=== PATIENT | male | born 1970 | race Two or more races ===

== ENCOUNTER 2022-11-06 13:52 | Inpatient (IN) | payer MEDICAID ==
[~2022-11-06] VITALS: Ht 180.3 cm; Wt 110.2 kg
[2022-11-06] MEDS ORDERED: QUET200T PO ×2 (15:09)
[2022-11-06] MEDS ORDERED: OLAN10TA26 PO (15:09)
[2022-11-06] MEDS ORDERED: DIAZ-328 PO (15:09)
[2022-11-06 15:19] LABS: COVID AG,FIA SOURCE NASAL SWAB
[2022-11-06] MEDS ORDERED: HALOPERIDOL LACTATE 5 MG/ML VIAL IM ONE (15:30)
[2022-11-06] MEDS ORDERED: DiphenhydrAMINE HCL 50 MG/ML VIAL IM ONE (15:30)
[2022-11-06] MEDS ORDERED: LORazepam 2 MG/ML VIAL IM ONE (15:30)
[2022-11-06 16:13] LABS: SARS-COV2 (COVID) ANTIGEN,FIA Negative (Negative)
[2022-11-06] MEDS ORDERED: ZOLPIDEM TARTRATE 10 MG TABLET PO PRN (16:30)
[2022-11-06] MEDS ORDERED: LORazepam 2 MG TABLET PO PRN (16:30)
[2022-11-06] MEDS ORDERED: HALOPERIDOL 5 MG TABLET PO PRN (16:30)
[2022-11-06 19:14] LABS: BASOPHILS % (AUTO) 0.4 % (0.0-2.0); EOSINOPHILS % (AUTO) 1.7 % (1.0-6.0); HEMATOCRIT 36.4 % (41-53); HEMOGLOBIN 12.1 g/dL (13.5-17.5); LYMPHOCYTES # (AUTO) 1.7 K/uL (1.0-4.8); LYMPHOCYTES % (AUTO) 20.6 % (22.0-44.0); MEAN CORPUSCULAR HEMOGLOBIN 28.4 pg (26.0-34.0); MEAN CORPUSCULAR HGB CONC 33.1 G/dL (31.0-37.0); MEAN CORPUSCULAR VOLUME 86 fL (80-100); MONOCYTES # (AUTO) 0.8 K/uL (0.1-1.0); MONOCYTES % (AUTO) 9.6 % (2.0-9.0); NEUTROPHILS # (AUTO) 5.7 K/uL (1.8-7.7); NEUTROPHILS % (AUTO) 67.7 % (40.0-70.0); PLATELET COUNT (AUTO) 219 K/uL (150-450); RED BLOOD CELL COUNT(AUTO) 4.24 MIL/uL (4.50-5.90); RED CELL DISTRIBUTION WIDTH 14.9 % (11.5-14.5); WHITE BLOOD COUNT (AUTO) 8.5 K/uL (4.5-11.0)
[2022-11-06 19:21] LABS: ANION GAP 10 mmol/L (8-16); CALCIUM, TOTAL 8.4 mg/dL (8.8-10.5); CARBON DIOXIDE 28 mmol/L (22-29); CHLORIDE 103 mmol/L (98-107); CREATININE 0.72 mg/dL (0.60-1.30); GLOMERULAR FILTR. RATE CALC > 60 mL/min (>60); GLUCOSE,RANDOM 104 mg/dL (70-110); POTASSIUM 3.8 mmol/L (3.5-5.1); SODIUM SERUM 141 mmol/L (136-145); UREA NITROGEN, BLOOD 28 mg/dL (7-18)
[2022-11-06 19:27] LABS: ALANINE AMINOTRANSFERASE 14 U/L (12-78); ALBUMIN 3.1 g/dL (3.4-5.0); ALKALINE PHOSPHATASE 79 U/L (46-116); ASPARTATE AMINOTRANSFERASE 23 U/L (15-37); BILIRUBIN,TOTAL 0.5 mg/dL (0.1-1.0); TOTAL PROTEIN, SERUM 6.2 g/dL (6.4-8.2)
[2022-11-06 19:28] LABS: ALCOHOL, BLOOD (SERUM) < 3 mg/dL (0-10)
[2022-11-06 22:01] VITALS: BP 137/83; PULSE 71; RESP 18; TEMP 98.6
[2022-11-07 08:29] VITALS: BP 119/65; PULSE 76; RESP 18; TEMP 98.4
[2022-11-07] MEDS: QUEtiapine FUMARATE 200 MG TABLET PO SCH ×2 (13:00→20:36)
[2022-11-07] MEDS ORDERED: MAGNESIUM HYDROXIDE SUSPENSION 30 ML UDCUP PO PRN (14:00)
[2022-11-07] MEDS ORDERED: NICOTINE 14 MG/24 HOUR PATCH TD PRN (14:00)
[2022-11-07] MEDS ORDERED: CloNIDine HCL 0.1 MG TABLET PO PRN (14:00)
[2022-11-07] MEDS ORDERED: ONDANSETRON HCL 4 MG TABLET PO PRN (14:00)
[2022-11-07] MEDS ORDERED: DOCUSATE SODIUM 100 MG CAPSULE PO PRN (14:00)
[2022-11-07] MEDS ORDERED: ALBUTEROL SULFATE HFA 90 MCG/PUFF 8 GM INHALER IH PRN (14:00)
[2022-11-07] MEDS ORDERED: LOPERAMIDE HCL 2 MG CAPSULE PO PRN (14:00)
[2022-11-07] MEDS ORDERED: PETROLATUM,WHITE 28 GM JELLY TP PRN (14:00)
[2022-11-07] MEDS ORDERED: GuaiFENesin/D-METHORPHAN [SUGAR-FREE] 200-20MG/10 ML SYRUP UDCUP PO PRN (14:00)
[2022-11-07] MEDS ORDERED: MAG HYDROX/ALUMINUM HYD/SIMETH ES 30 ML SUSPENSION UDCUP PO PRN (14:00)
[2022-11-07] MEDS ORDERED: ACETAMINOPHEN 325 MG TABLET PO PRN (14:00)
[2022-11-07 20:19] VITALS: BP 122/71; PULSE 65; RESP 19; TEMP 98.6; O2SAT 100
[2022-11-08] MEDS: QUEtiapine FUMARATE 200 MG TABLET PO SCH ×2 (09:00→20:56)
[2022-11-08 14:53] VITALS: BP 131/82; PULSE 73; RESP 18; TEMP 98.2
[2022-11-08 19:54] VITALS: BP 108/64; PULSE 73; RESP 19; TEMP 97.8; O2SAT 97
[2022-11-08 20:40] VITALS: RESP 16
[2022-11-09 08:14] VITALS: BP 118/67; PULSE 86; RESP 17; TEMP 97.6; O2SAT 98
[2022-11-09] MEDS: QUEtiapine FUMARATE 200 MG TABLET PO SCH ×3 (08:21→20:25)
[2022-11-09 20:12] VITALS: BP 132/82; PULSE 87; RESP 20; TEMP 97.6; O2SAT 100
[2022-11-10 08:30] LABS: HEMOGLOBIN A1C 5.4 % (3.8-5.6)
[2022-11-10 08:31] VITALS: BP 114/83; PULSE 84; RESP 18; TEMP 98.1; O2SAT 99
[2022-11-10 08:44] LABS: CHOL/HDL RATIO 3.5 (4.2-7.3); THYROID STIMULATING HORMONE 2.42 uIU/mL (0.36-3.74)
[2022-11-10] MEDS: QUEtiapine FUMARATE 200 MG TABLET PO SCH ×2 (09:00→21:00)
[2022-11-10 22:06] VITALS: BP 140/82; PULSE 81; RESP 18; TEMP 97.8
[2022-11-11 08:12] VITALS: BP 119/64; PULSE 83; RESP 17; TEMP 97.2; O2SAT 99
[2022-11-11] MEDS: QUEtiapine FUMARATE 200 MG TABLET PO SCH ×2 (08:35→21:06)
[2022-11-11] MEDS ORDERED: HALOPERIDOL LACTATE 5 MG/ML VIAL IM PRN (15:15)
[2022-11-12 02:51] VITALS: RESP 18
[2022-11-12 08:20] VITALS: BP 100/73; PULSE 83; RESP 18; TEMP 98.7; O2SAT 100
[2022-11-12] MEDS: QUEtiapine FUMARATE 200 MG TABLET PO SCH ×3 (08:35→20:26)
[2022-11-12 20:04] VITALS: BP 120/64; PULSE 86; RESP 18; TEMP 97.9; O2SAT 98
[2022-11-13 08:25] VITALS: BP 119/66; PULSE 82; RESP 20; TEMP 98; O2SAT 97
[2022-11-13 21:09] VITALS: BP 123/66; PULSE 68; RESP 18; TEMP 98.2; O2SAT 97
[2022-11-13] MEDS: QUEtiapine FUMARATE 300 MG TABLET PO SCH (21:27)
[2022-11-14 08:11] VITALS: BP 138/73; PULSE 76; RESP 18; TEMP 97.8; O2SAT 99
[2022-11-14 20:06] VITALS: BP 124/67; PULSE 63; RESP 18; TEMP 98; O2SAT 98
[2022-11-14] MEDS: QUEtiapine FUMARATE 300 MG TABLET PO SCH (20:46)
[2022-11-15 08:08] VITALS: BP 124/65; PULSE 59; RESP 18; TEMP 98.3; O2SAT 99
[2022-11-15 20:14] VITALS: BP 136/65; PULSE 75; RESP 18; TEMP 97.6; O2SAT 98
[2022-11-15] MEDS: QUEtiapine FUMARATE 300 MG TABLET PO SCH (20:19)
[2022-11-16 08:26] VITALS: BP 128/71; PULSE 76; RESP 18; TEMP 98.1; O2SAT 98
[2022-11-16 20:16] VITALS: BP 103/63; PULSE 64; RESP 19; TEMP 98.4; O2SAT 98
[2022-11-16] MEDS: QUEtiapine FUMARATE 300 MG TABLET PO SCH (20:44)
[2022-11-17 08:14] VITALS: BP 140/87; PULSE 76; RESP 17; TEMP 98; O2SAT 98
[2022-11-17 20:16] VITALS: BP 114/69; PULSE 68; RESP 20; TEMP 98.2; O2SAT 98
[2022-11-17] MEDS: QUEtiapine FUMARATE 300 MG TABLET PO SCH (20:33)
[2022-11-18] VITALS (7 sets, daily range): BP systolic 116–122; BP diastolic 66–84; PULSE 64–83; RESP 17–19; TEMP 97.3–98.5; O2SAT 97–98
[2022-11-18] MEDS: QUEtiapine FUMARATE 300 MG TABLET PO SCH (20:30)
[2022-11-19] VITALS (7 sets, daily range): BP systolic 124–128; BP diastolic 74–75; PULSE 72–86; RESP 17–18; TEMP 97.6–98.3; O2SAT 98–99
[2022-11-19] MEDS: QUEtiapine FUMARATE 300 MG TABLET PO SCH (20:27)
[2022-11-20] VITALS (8 sets, daily range): BP systolic 102–119; BP diastolic 67–73; PULSE 68–70; RESP 17–18; TEMP 97.6–98.4; O2SAT 97
[2022-11-20] MEDS: QUEtiapine FUMARATE 300 MG TABLET PO SCH (20:47)
[2022-11-21] VITALS (8 sets, daily range): BP systolic 122–131; BP diastolic 63–76; PULSE 70–72; RESP 16–18; TEMP 97.9–98.6; O2SAT 97–99
[2022-11-21] MEDS: QUEtiapine FUMARATE 300 MG TABLET PO SCH (20:23)
[2022-11-22 03:39] VITALS: TEMP 97.6
[2022-11-22 06:04] VITALS: TEMP 97.7
[2022-11-22 10:36] VITALS: BP 112/69; PULSE 81; RESP 18; TEMP 98.1; O2SAT 98
[2022-11-22 17:22] VITALS: TEMP 98.1
[2022-11-22 18:28] VITALS: TEMP 97.3
[2022-11-22 21:04] VITALS: BP 110/65; PULSE 76; RESP 18; TEMP 98; O2SAT 97
[2022-11-22] MEDS: QUEtiapine FUMARATE 300 MG TABLET PO SCH (21:13)
[2022-11-23] VITALS (8 sets, daily range): BP systolic 129–134; BP diastolic 60–74; PULSE 70–91; RESP 18–20; TEMP 97.7–98.4; O2SAT 96–98
[2022-11-23] MEDS: QUEtiapine FUMARATE 300 MG TABLET PO SCH (21:24)
[2022-11-24 02:04] VITALS: TEMP 97.8
[2022-11-24 06:05] VITALS: TEMP 97.9
[2022-11-24 08:48] VITALS: BP 122/71; PULSE 97; RESP 18; TEMP 98.2; O2SAT 97
[2022-11-24 13:39] VITALS: TEMP 98.6
[2022-11-24 20:12] VITALS: BP 130/68; PULSE 100; RESP 20; TEMP 98; O2SAT 98
[2022-11-24] MEDS: QUEtiapine FUMARATE 300 MG TABLET PO SCH (20:27)
[2022-11-25 08:36] VITALS: BP 124/75; PULSE 79; RESP 18; TEMP 97.2; O2SAT 96
[2022-11-25 20:09] VITALS: BP 122/72; PULSE 60; RESP 20; TEMP 98.2; O2SAT 96
[2022-11-25] MEDS: QUEtiapine FUMARATE 300 MG TABLET PO SCH (20:16)
[2022-11-26 08:12] VITALS: BP 121/71; PULSE 76; RESP 18; TEMP 98.2; O2SAT 97
[2022-11-26] MEDS ORDERED: TUBERCULIN, PURIFIED PROTEIN DERIVATIVE 5 TU/0.1 ML SYRINGE ID ONE (17:15)
[2022-11-26 20:17] VITALS: BP 128/72; PULSE 92; RESP 20; TEMP 98.2; O2SAT 99
[2022-11-26] MEDS: QUEtiapine FUMARATE 300 MG TABLET PO SCH (20:42)
[2022-11-27 08:27] VITALS: BP 118/72; PULSE 70; RESP 17; TEMP 97.9; O2SAT 97
[2022-11-27] MEDS: QUEtiapine FUMARATE 300 MG TABLET PO SCH (20:17)
[2022-11-27 20:40] VITALS: BP 122/71; PULSE 67; RESP 18; TEMP 98; O2SAT 97
[2022-11-28 08:07] VITALS: BP 117/62; PULSE 79; RESP 18; TEMP 98.2; O2SAT 97
[2022-11-28] MEDS: QUEtiapine FUMARATE 300 MG TABLET PO SCH (20:07)
[2022-11-28 20:16] VITALS: BP 122/70; PULSE 90; RESP 20; TEMP 97.6; O2SAT 98
[2022-11-29 08:18] VITALS: BP 100/60; PULSE 76; RESP 18; TEMP 98; O2SAT 96
[2022-11-29] MEDS: QUEtiapine FUMARATE 300 MG TABLET PO SCH (20:12)
[2022-11-29 20:16] VITALS: BP 132/70; PULSE 102; RESP 18; TEMP 98.2; O2SAT 98
[2022-11-30 08:25] VITALS: BP 108/60; PULSE 75; RESP 17; TEMP 97.3; O2SAT 98
[2022-11-30 20:13] VITALS: BP 122/70; PULSE 99; RESP 18; TEMP 97.6; O2SAT 98
[2022-11-30] MEDS: QUEtiapine FUMARATE 300 MG TABLET PO SCH (21:07)
[2022-12-01 08:39] VITALS: BP 113/70; PULSE 97; RESP 18; TEMP 99; O2SAT 97
[2022-12-01] MEDS: QUEtiapine FUMARATE 300 MG TABLET PO SCH (20:03)
[2022-12-01 21:51] VITALS: BP 127/94; PULSE 66; RESP 18; TEMP 97; O2SAT 97
[2022-12-02 08:38] VITALS: BP 131/72; PULSE 69; RESP 18; TEMP 97.8; O2SAT 98
[2022-12-02] MEDS: QUEtiapine FUMARATE 300 MG TABLET PO SCH (20:15)
[2022-12-02 22:14] VITALS: RESP 18; TEMP 97.9
[2022-12-03 09:35] VITALS: BP 130/74; PULSE 84; RESP 18; TEMP 97.8; O2SAT 98
[2022-12-03] MEDS: QUEtiapine FUMARATE 300 MG TABLET PO SCH (20:16)
[2022-12-03 20:20] VITALS: BP 125/81; PULSE 65; RESP 19; TEMP 97.5; O2SAT 96
[2022-12-04 08:41] VITALS: BP 137/69; PULSE 75; RESP 18; TEMP 97.7; O2SAT 98
[2022-12-04] MEDS: QUEtiapine FUMARATE 300 MG TABLET PO SCH (21:15)
[2022-12-04 23:05] VITALS: BP 124/74; PULSE 85; RESP 18; TEMP 98; O2SAT 97
[2022-12-05 08:59] VITALS: BP 108/72; PULSE 80; RESP 18; TEMP 98; O2SAT 97
[2022-12-05] MEDS: QUEtiapine FUMARATE 300 MG TABLET PO SCH (20:37)
[2022-12-05 20:51] VITALS: BP 118/69; PULSE 75; RESP 18; TEMP 97.8; O2SAT 98
[2022-12-06 08:24] VITALS: BP 122/70; PULSE 70; RESP 18; TEMP 97.6; O2SAT 96
[2022-12-06 20:52] VITALS: BP 132/70; PULSE 70; RESP 17; TEMP 97.4; O2SAT 99
[2022-12-06] MEDS: QUEtiapine FUMARATE 300 MG TABLET PO SCH (21:27)
[2022-12-07 08:23] VITALS: BP 125/74; PULSE 75; RESP 18; TEMP 97.8; O2SAT 97
[2022-12-07] MEDS: QUEtiapine FUMARATE 300 MG TABLET PO SCH (20:04)
[2022-12-07 20:06] VITALS: BP 137/80; PULSE 84; RESP 20; TEMP 98; O2SAT 96
[2022-12-08 08:33] VITALS: BP 155/85; PULSE 92; RESP 18; TEMP 97.7; O2SAT 97
[2022-12-08 20:25] VITALS: BP 148/82; PULSE 90; RESP 20; TEMP 98; O2SAT 98
[2022-12-08] MEDS: QUEtiapine FUMARATE 300 MG TABLET PO SCH (20:25)
[2022-12-09 08:28] VITALS: BP 116/71; PULSE 78; RESP 17; TEMP 97.5; O2SAT 98
[2022-12-09 20:09] VITALS: BP 144/80; PULSE 75; RESP 20; TEMP 97.8; O2SAT 96
[2022-12-09] MEDS: QUEtiapine FUMARATE 300 MG TABLET PO SCH (20:09)
[2022-12-10 08:24] VITALS: BP 109/66; PULSE 88; RESP 18; TEMP 97.8; O2SAT 96
[2022-12-10 20:14] VITALS: BP 129/69; PULSE 80; RESP 18; TEMP 97.8; O2SAT 98
[2022-12-10] MEDS: QUEtiapine FUMARATE 300 MG TABLET PO SCH (20:37)
[2022-12-11 08:38] VITALS: BP 135/68; PULSE 69; RESP 18; TEMP 97.9; O2SAT 96
[2022-12-11 20:06] VITALS: BP 135/74; PULSE 72; RESP 19; TEMP 97.7
[2022-12-11] MEDS: QUEtiapine FUMARATE 300 MG TABLET PO SCH (21:29)
[2022-12-12 10:29] VITALS: BP 121/78; PULSE 84; RESP 20; TEMP 97.8; O2SAT 99
[2022-12-12] MEDS: QUEtiapine FUMARATE 300 MG TABLET PO SCH (20:07)
[2022-12-12 20:12] VITALS: BP 114/66; PULSE 90; RESP 18; TEMP 97.9; O2SAT 97
[2022-12-13 12:41] VITALS: BP 123/83; PULSE 76; RESP 18; TEMP 97.5; O2SAT 97
[2022-12-13 20:08] VITALS: BP 128/78; PULSE 86; RESP 19; TEMP 98; O2SAT 98
[2022-12-13] MEDS: QUEtiapine FUMARATE 300 MG TABLET PO SCH (20:42)
[2022-12-14 08:36] VITALS: BP 128/66; PULSE 80; RESP 20; TEMP 97.1; O2SAT 96
[2022-12-14] MEDS: QUEtiapine FUMARATE 300 MG TABLET PO SCH (20:07)
[2022-12-14 20:14] VITALS: BP 130/82; PULSE 92; RESP 20; TEMP 98.2; O2SAT 98
[2022-12-15 14:31] VITALS: BP 135/73; PULSE 60; RESP 18; TEMP 97.2; O2SAT 97
[2022-12-15] MEDS: QUEtiapine FUMARATE 300 MG TABLET PO SCH (20:08)
[2022-12-15 22:38] VITALS: BP 119/75; PULSE 75; RESP 18; TEMP 98.1; O2SAT 98
[2022-12-16 11:11] VITALS: BP 104/59; PULSE 60; RESP 18; TEMP 97.4; O2SAT 97
[2022-12-16] MEDS: QUEtiapine FUMARATE 300 MG TABLET PO SCH (20:58)
[2022-12-17 01:52] VITALS: RESP 18; TEMP 97.7
[2022-12-17 08:37] VITALS: BP 125/82; PULSE 78; RESP 18; TEMP 97.8; O2SAT 97
[2022-12-17] MEDS: QUEtiapine FUMARATE 200 MG TABLET PO SCH (09:29)
[2022-12-17 20:10] VITALS: BP 116/74; PULSE 75; RESP 20; TEMP 97.6; O2SAT 98
[2022-12-17] MEDS: QUEtiapine FUMARATE 300 MG TABLET PO SCH (20:48)
[2022-12-18] MEDS: QUEtiapine FUMARATE 200 MG TABLET PO SCH (09:21)
[2022-12-18 09:26] VITALS: BP 120/79; PULSE 79; RESP 18; TEMP 97.5; O2SAT 96
[2022-12-18 20:08] VITALS: BP 130/82; PULSE 86; RESP 20; TEMP 97.9; O2SAT 98
[2022-12-18] MEDS: QUEtiapine FUMARATE 300 MG TABLET PO SCH (20:08)
[2022-12-19] MEDS: QUEtiapine FUMARATE 200 MG TABLET PO SCH (08:06)
[2022-12-19 08:30] VITALS: BP 129/64; PULSE 77; RESP 18; TEMP 98
[2022-12-19 12:02] VITALS: BP 126/72; PULSE 78; RESP 17; TEMP 98; O2SAT 97
[2022-12-19 20:00] VITALS: BP 134/75; PULSE 67; TEMP 97.5
[2022-12-19] MEDS: QUEtiapine FUMARATE 300 MG TABLET PO SCH (20:31)
[2022-12-20 08:14] VITALS: BP 126/74; PULSE 80; RESP 17; TEMP 98; O2SAT 95
[2022-12-20] MEDS: QUEtiapine FUMARATE 200 MG TABLET PO SCH (09:00)
[2022-12-20] MEDS: QUEtiapine FUMARATE 300 MG TABLET PO SCH (20:41)
[2022-12-20 20:59] VITALS: BP 125/70; PULSE 76; RESP 17; TEMP 97.5; O2SAT 98
[2022-12-21 08:13] VITALS: BP 102/72; PULSE 77; RESP 17; TEMP 98; O2SAT 98
[2022-12-21 20:09] VITALS: BP 138/82; PULSE 104; RESP 19; TEMP 98; O2SAT 98
[2022-12-21] MEDS: QUEtiapine FUMARATE 300 MG TABLET PO SCH (20:45)
[2022-12-22 08:18] VITALS: BP 123/79; PULSE 100; RESP 18; TEMP 97.7; O2SAT 96
[2022-12-22 20:10] VITALS: BP 138/78; PULSE 104; RESP 20; TEMP 98; O2SAT 98
[2022-12-22] MEDS: QUEtiapine FUMARATE 300 MG TABLET PO SCH (20:28)
[2022-12-23 08:25] VITALS: BP 121/73; PULSE 80; RESP 17; TEMP 97.7; O2SAT 93
[2022-12-23] MEDS: QUEtiapine FUMARATE 300 MG TABLET PO SCH (20:08)
[2022-12-23 20:11] VITALS: BP 114/82; PULSE 81; RESP 18; TEMP 97.9; O2SAT 97
[2022-12-24 08:35] VITALS: BP 118/94; PULSE 68; RESP 18; TEMP 97.7; O2SAT 95
[2022-12-24] MEDS: QUEtiapine FUMARATE 300 MG TABLET PO SCH (20:56)
[2022-12-24 21:34] VITALS: BP 123/79; PULSE 79; RESP 18; TEMP 97.8; O2SAT 95
[2022-12-25 08:27] VITALS: BP 123/68; PULSE 81; RESP 18; TEMP 97.9; O2SAT 97
[2022-12-25 20:08] VITALS: BP 125/79; PULSE 72; RESP 18; TEMP 97.8; O2SAT 98
[2022-12-25] MEDS: QUEtiapine FUMARATE 300 MG TABLET PO SCH (20:29)
[2022-12-26 08:04] VITALS: BP 121/65; PULSE 96; RESP 18; TEMP 97.7; O2SAT 95
[2022-12-26] MEDS: QUEtiapine FUMARATE 300 MG TABLET PO SCH (20:36)
[2022-12-27 01:06] VITALS: BP 124/75; PULSE 77; RESP 18; TEMP 97.8; O2SAT 98
[2022-12-27 11:56] VITALS: RESP 18; TEMP 98
[2022-12-27] MEDS: QUEtiapine FUMARATE 300 MG TABLET PO SCH (20:17)
[2022-12-27 20:54] VITALS: BP 131/82; PULSE 75; RESP 18; TEMP 97.5; O2SAT 97
[2022-12-28 08:53] VITALS: BP 142/85; PULSE 80; RESP 18; TEMP 97.9; O2SAT 94
[2022-12-28] MEDS: QUEtiapine FUMARATE 300 MG TABLET PO SCH (20:15)
[2022-12-28 21:33] VITALS: BP 100/63; PULSE 68; RESP 16; TEMP 98.1; O2SAT 94
[2022-12-29 14:28] VITALS: BP 134/66; PULSE 85; RESP 18; TEMP 98.3; O2SAT 98
[2022-12-29] MEDS: QUEtiapine FUMARATE 300 MG TABLET PO SCH (20:05)
[2022-12-29 20:39] VITALS: BP 128/67; PULSE 68; RESP 18; TEMP 97.6; O2SAT 95
[2022-12-30 08:24] VITALS: BP 135/70; PULSE 79; RESP 20; TEMP 97.7; O2SAT 97
[2022-12-30 20:08] VITALS: BP 139/84; PULSE 68; RESP 22; TEMP 97.7; O2SAT 96
[2022-12-30] MEDS: QUEtiapine FUMARATE 300 MG TABLET PO SCH (20:19)
[2022-12-31 08:10] VITALS: BP 143/91; PULSE 92; RESP 18; TEMP 98; O2SAT 95
[2022-12-31 20:12] VITALS: BP 138/84; PULSE 110; RESP 18; TEMP 98; O2SAT 98
[2022-12-31] MEDS: QUEtiapine FUMARATE 300 MG TABLET PO SCH (20:14)
[2023-01-01 08:17] VITALS: BP 123/66; PULSE 75; RESP 18; TEMP 97.7; O2SAT 95
[2023-01-01 20:13] VITALS: BP 144/73; PULSE 76; RESP 20; TEMP 97.8; O2SAT 97
[2023-01-01] MEDS: QUEtiapine FUMARATE 300 MG TABLET PO SCH (20:37)
[2023-01-02 08:43] VITALS: BP 128/82; PULSE 88; RESP 16; TEMP 97.8; O2SAT 98
[2023-01-02] MEDS: QUEtiapine FUMARATE 300 MG TABLET PO SCH (20:12)
[2023-01-02 20:48] VITALS: BP 140/73; PULSE 73; RESP 16; TEMP 97.6; O2SAT 100
[2023-01-03 18:23] VITALS: BP 132/80; PULSE 78; RESP 18; TEMP 98.1; O2SAT 96
[2023-01-03 20:19] VITALS: BP 127/82; PULSE 88; RESP 19; TEMP 98
[2023-01-03] MEDS: QUEtiapine FUMARATE 300 MG TABLET PO SCH (21:04)
[2023-01-04 08:39] VITALS: BP 131/69; PULSE 84; RESP 18; TEMP 97.3; O2SAT 95
[2023-01-04 20:10] VITALS: BP 108/82; PULSE 70; RESP 18; TEMP 97.6; O2SAT 96
[2023-01-04] MEDS: QUEtiapine FUMARATE 300 MG TABLET PO SCH (20:16)
[2023-01-05 08:34] VITALS: BP 119/63; PULSE 78; RESP 18; TEMP 97.7; O2SAT 95
[2023-01-05] MEDS: QUEtiapine FUMARATE 300 MG TABLET PO SCH (20:08)
[2023-01-05 20:13] VITALS: BP 111/68; PULSE 84; RESP 18; TEMP 97.7; O2SAT 96
[2023-01-06 08:15] VITALS: BP 128/77; PULSE 78; RESP 18; TEMP 97.7; O2SAT 97
[2023-01-06 20:06] VITALS: BP 122/70; PULSE 80; RESP 20; TEMP 97.8; O2SAT 98
[2023-01-06] MEDS: QUEtiapine FUMARATE 300 MG TABLET PO SCH (20:15)
[2023-01-07 08:07] VITALS: BP 142/75; PULSE 67; RESP 18; TEMP 97.3; O2SAT 97
[2023-01-07 20:04] VITALS: BP 138/82; PULSE 80; RESP 20; TEMP 97.8; O2SAT 98
[2023-01-07] MEDS: QUEtiapine FUMARATE 300 MG TABLET PO SCH (20:11)
[2023-01-08 09:41] VITALS: BP 122/68; PULSE 83; RESP 17; TEMP 97.8; O2SAT 96
[2023-01-08] MEDS: QUEtiapine FUMARATE 300 MG TABLET PO SCH (20:09)
[2023-01-08 20:53] VITALS: BP 125/66; PULSE 80; RESP 18; TEMP 97.7
[2023-01-09 08:25] VITALS: BP 130/71; PULSE 78; RESP 20; TEMP 96.9; O2SAT 98
[2023-01-09] MEDS ORDERED: DIVALPROEX SODIUM 250 MG DR TABLET PO SCH (17:00)
[2023-01-09] MEDS ORDERED: OLANZapine 10 MG TABLET PO SCH (17:00)
[2023-01-09 20:08] VITALS: BP 128/71; PULSE 73; RESP 18; TEMP 98; O2SAT 98
[2023-01-10 09:02] VITALS: BP 141/83; PULSE 68; RESP 17; TEMP 97.5; O2SAT 97
[2023-01-10] MEDS: OLANZapine 10 MG TABLET PO SCH ×2 (14:26→20:39)
[2023-01-10] MEDS: QUEtiapine FUMARATE 300 MG TABLET PO SCH (20:39)
[2023-01-10 21:25] VITALS: BP 137/75; PULSE 68; RESP 17; TEMP 98; O2SAT 96
[2023-01-11 08:24] VITALS: BP 119/71; PULSE 74; RESP 17; TEMP 98; O2SAT 95
[2023-01-11 20:07] VITALS: BP 117/64; PULSE 100; RESP 19; TEMP 98; O2SAT 98
[2023-01-11] MEDS: QUEtiapine FUMARATE 300 MG TABLET PO SCH (20:17)
[2023-01-11] MEDS: OLANZapine 10 MG TABLET PO SCH (20:17)
[2023-01-12 08:22] VITALS: BP 122/72; PULSE 74; RESP 17; TEMP 98; O2SAT 97
[2023-01-12 20:17] VITALS: BP 135/74; PULSE 73; RESP 20; TEMP 97.8; O2SAT 100
[2023-01-12] MEDS: OLANZapine 10 MG TABLET PO SCH (20:39)
[2023-01-12] MEDS: QUEtiapine FUMARATE 300 MG TABLET PO SCH (20:39)
[2023-01-13 09:11] VITALS: BP 130/74; PULSE 89; RESP 18; TEMP 97.1; O2SAT 96
[2023-01-13] MEDS: OLANZapine 10 MG TABLET PO SCH (20:09)
[2023-01-13] MEDS: QUEtiapine FUMARATE 300 MG TABLET PO SCH (20:10)
[2023-01-13 20:33] VITALS: BP 126/68; PULSE 77; RESP 17; TEMP 98; O2SAT 97
[2023-01-14 08:36] VITALS: BP 125/71; PULSE 86; RESP 18; TEMP 97.7; O2SAT 99
[2023-01-14 20:47] VITALS: BP 128/70; PULSE 90; RESP 20; TEMP 97.8; O2SAT 98
[2023-01-14] MEDS: QUEtiapine FUMARATE 300 MG TABLET PO SCH (20:55)
[2023-01-14] MEDS: OLANZapine 10 MG TABLET PO SCH (20:55)
[2023-01-15 08:23] VITALS: BP 138/82; PULSE 84; RESP 20; TEMP 98; O2SAT 97
[2023-01-15 09:52] LABS: APPEARANCE,URINE CLEAR (CLEAR); BILIRUBIN,URINE NEGATIVE (NEGATIVE); COLOR,URINE LIGHT YELLOW (YELLOW); GLUCOSE, URINE (UA) NEGATIVE (NEGATIVE); KETONES,URINE NEGATIVE (NEGATIVE); LEUKOCYTE ESTERASE ,URINE NEGATIVE (NEGATIVE); NITRATE,URINE NEGATIVE (NEGATIVE); OCCULT BLOOD,URINE NEGATIVE (NEGATIVE); PH,URINE 6.5 (5.0-8.0); PH,URINE DRUG SCREEN 6.5 (5.0-8.0); PROTEIN,URINE NEGATIVE (NEGATIVE); UROBILINOGEN,URINE <=1.0 mg/dL (<=1.0)
[2023-01-15 10:03] LABS: ALCOHOL, URINE DRUG SCREEN NEGATIVE (NEGATIVE); AMPHET/METH SCREEN,URINE NEGATIVE (NEGATIVE); BARBITURATE SCREEN, URINE NEGATIVE (NEGATIVE); BENZODIAZEPINES SCREEN,URINE NEGATIVE (NEGATIVE); CANNABINOID SCREEN,URINE NEGATIVE (NEGATIVE); COCAINE SCREEN,URINE NEGATIVE (NEGATIVE); METHADONE SCREEN, URINE NEGATIVE (NEGATIVE); OPIATE SCREEN,URINE NEGATIVE (NEGATIVE); PHENCYCLIDINE SCREEN,URINE NEGATIVE (NEGATIVE)
[2023-01-15 20:11] VITALS: BP 125/79; PULSE 78; RESP 20; TEMP 97.8; O2SAT 96
[2023-01-15] MEDS: OLANZapine 10 MG TABLET PO SCH (21:11)
[2023-01-15] MEDS: QUEtiapine FUMARATE 300 MG TABLET PO SCH (21:11)
[2023-01-16 09:11] VITALS: BP 147/110; PULSE 93; RESP 20; TEMP 97.7; O2SAT 98
[2023-01-16 20:07] VITALS: BP 134/81; PULSE 89; RESP 20; TEMP 97.7; O2SAT 100
[2023-01-16] MEDS: OLANZapine 10 MG TABLET PO SCH (21:23)
[2023-01-16] MEDS: QUEtiapine FUMARATE 300 MG TABLET PO SCH (21:24)
[2023-01-17 08:25] VITALS: BP 131/70; PULSE 75; RESP 18; TEMP 97.5; O2SAT 100
[2023-01-17 20:05] VITALS: BP 124/83; PULSE 80; RESP 20; TEMP 97.6; O2SAT 98
[2023-01-17] MEDS: OLANZapine 10 MG TABLET PO SCH (20:09)
[2023-01-17] MEDS: QUEtiapine FUMARATE 300 MG TABLET PO SCH (20:10)
[2023-01-18 08:21] VITALS: BP 113/60; PULSE 77; RESP 17; TEMP 97.3; O2SAT 96
[2023-01-18 20:11] VITALS: BP 146/82; PULSE 89; RESP 18; TEMP 97.8; O2SAT 97
[2023-01-18] MEDS: OLANZapine 10 MG TABLET PO SCH (20:15)
[2023-01-18] MEDS: QUEtiapine FUMARATE 300 MG TABLET PO SCH (20:15)
[2023-01-19 08:36] VITALS: BP 132/87; PULSE 94; RESP 18; TEMP 97.7; O2SAT 96
[2023-01-19] MEDS: QUEtiapine FUMARATE 300 MG TABLET PO SCH (20:03)
[2023-01-19] MEDS: OLANZapine 10 MG TABLET PO SCH (20:03)
[2023-01-19 20:08] VITALS: BP 130/70; PULSE 98; RESP 18; TEMP 98; O2SAT 98
[2023-01-20 08:08] VITALS: BP 140/75; PULSE 88; RESP 18; TEMP 97.5; O2SAT 98
[2023-01-20 20:18] VITALS: BP 126/76; PULSE 76; RESP 20; TEMP 97.6; O2SAT 98
[2023-01-20] MEDS: OLANZapine 10 MG TABLET PO SCH (20:53)
[2023-01-20] MEDS: QUEtiapine FUMARATE 300 MG TABLET PO SCH (20:53)
[2023-01-21 08:23] VITALS: BP 120/79; PULSE 83; RESP 18; TEMP 97.5; O2SAT 95
[2023-01-21 20:06] VITALS: BP 120/70; PULSE 80; RESP 19; TEMP 97.8; O2SAT 98
[2023-01-21] MEDS: QUEtiapine FUMARATE 300 MG TABLET PO SCH (20:22)
[2023-01-21] MEDS: OLANZapine 10 MG TABLET PO SCH (20:22)
[2023-01-22 08:14] VITALS: BP 131/81; PULSE 90; RESP 18; TEMP 97.6; O2SAT 97
[2023-01-22] MEDS: OLANZapine 10 MG TABLET PO SCH (20:10)
[2023-01-22] MEDS: QUEtiapine FUMARATE 300 MG TABLET PO SCH (20:10)
[2023-01-23 04:40] VITALS: RESP 18; TEMP 98
[2023-01-23 08:13] VITALS: BP 135/79; PULSE 81; RESP 17; TEMP 97.1; O2SAT 95
[2023-01-23 20:09] VITALS: BP 133/79; PULSE 76; RESP 20; TEMP 97.7; O2SAT 97
[2023-01-23] MEDS: OLANZapine 10 MG TABLET PO SCH (20:24)
[2023-01-23] MEDS: QUEtiapine FUMARATE 300 MG TABLET PO SCH (20:24)
[2023-01-24 08:11] VITALS: BP 120/84; PULSE 72; RESP 18; TEMP 97.8; O2SAT 97
[2023-01-24 20:36] VITALS: BP 122/85; PULSE 80; RESP 18; TEMP 97.9
[2023-01-24] MEDS: OLANZapine 10 MG TABLET PO SCH (20:50)
[2023-01-24] MEDS: QUEtiapine FUMARATE 300 MG TABLET PO SCH (20:50)
[2023-01-25 08:33] VITALS: BP 104/59; PULSE 73; RESP 17; TEMP 97.3; O2SAT 98
[2023-01-25] MEDS: QUEtiapine FUMARATE 300 MG TABLET PO SCH (20:06)
[2023-01-25] MEDS: OLANZapine 10 MG TABLET PO SCH (20:08)
[2023-01-25 20:19] VITALS: BP 126/78; PULSE 83; RESP 20; TEMP 97.7; O2SAT 97
[2023-01-26 19:26] VITALS: RESP 18
[2023-01-26 20:11] VITALS: BP 130/82; PULSE 90; RESP 20; TEMP 98; O2SAT 98
[2023-01-26] MEDS: OLANZapine 10 MG TABLET PO SCH (20:43)
[2023-01-26] MEDS: QUEtiapine FUMARATE 300 MG TABLET PO SCH (20:43)
[2023-01-27 08:36] VITALS: BP 139/79; PULSE 84; RESP 18; TEMP 97.9; O2SAT 96
[2023-01-27] MEDS: OLANZapine 10 MG TABLET PO SCH (20:32)
[2023-01-27] MEDS: QUEtiapine FUMARATE 300 MG TABLET PO SCH (20:32)
[2023-01-27 22:05] VITALS: BP 129/78; PULSE 83; RESP 18; TEMP 97.8; O2SAT 97
[2023-01-28 08:05] VITALS: BP 134/67; PULSE 85; RESP 18; TEMP 97.6; O2SAT 95
[2023-01-28] MEDS ORDERED: INFLUENZA VIRUS VACCINE QVS 2023-24 (6MO+)/PF 60 MCG/0.5 ML SYRINGE IM. ONE (14:30)
[2023-01-28 20:12] VITALS: BP 122/77; PULSE 83; RESP 20; TEMP 97.7; O2SAT 97
[2023-01-28] MEDS: QUEtiapine FUMARATE 300 MG TABLET PO SCH (20:45)
[2023-01-28] MEDS: OLANZapine 10 MG TABLET PO SCH (20:45)
[2023-01-29 08:33] VITALS: BP 126/71; PULSE 79; RESP 17; TEMP 97.8; O2SAT 98
[2023-01-29 20:21] VITALS: BP 145/82; PULSE 84; RESP 20; TEMP 97.7; O2SAT 96
[2023-01-29] MEDS: OLANZapine 10 MG TABLET PO SCH (20:36)
[2023-01-29] MEDS: QUEtiapine FUMARATE 300 MG TABLET PO SCH (20:36)
[2023-01-30 09:52] VITALS: BP 145/52; PULSE 81; RESP 18; TEMP 97.3; O2SAT 98
[2023-01-30 20:23] VITALS: BP 159/89; PULSE 77; RESP 18; TEMP 97.5; O2SAT 97
[2023-01-30] MEDS: OLANZapine 10 MG TABLET PO SCH (20:30)
[2023-01-30] MEDS: QUEtiapine FUMARATE 300 MG TABLET PO SCH (20:31)
[2023-01-31 14:46] VITALS: BP 133/79; PULSE 86; RESP 18; TEMP 97.8; O2SAT 98
[2023-01-31] MEDS: OLANZapine 10 MG TABLET PO SCH (20:21)
[2023-01-31] MEDS: QUEtiapine FUMARATE 300 MG TABLET PO SCH (20:21)
[2023-01-31 20:52] VITALS: BP 130/61; PULSE 73; RESP 18; TEMP 97.5
[2023-02-01 08:38] VITALS: BP 118/64; PULSE 73; RESP 17; TEMP 97.1; O2SAT 95
[2023-02-01 20:12] VITALS: BP 129/80; PULSE 86; RESP 20; TEMP 97.7; O2SAT 98
[2023-02-01] MEDS: QUEtiapine FUMARATE 300 MG TABLET PO SCH (20:32)
[2023-02-01] MEDS: OLANZapine 10 MG TABLET PO SCH (20:32)
[2023-02-02 08:38] VITALS: BP 145/77; PULSE 90; RESP 18; TEMP 97.7; O2SAT 94
[2023-02-02 20:28] VITALS: BP 129/72; PULSE 78; RESP 20; TEMP 98; O2SAT 97
[2023-02-02] MEDS: QUEtiapine FUMARATE 300 MG TABLET PO SCH (20:35)
[2023-02-02] MEDS: OLANZapine 10 MG TABLET PO SCH (20:36)
[2023-02-03 08:35] VITALS: BP 127/82; PULSE 70; RESP 18; TEMP 97.7; O2SAT 93
[2023-02-03] MEDS: OLANZapine 10 MG TABLET PO SCH (20:00)
[2023-02-03] MEDS: QUEtiapine FUMARATE 300 MG TABLET PO SCH (20:00)
[2023-02-03 20:08] VITALS: BP 125/82; PULSE 74; RESP 19; TEMP 97.8; O2SAT 98
[2023-02-04 08:31] VITALS: BP 127/76; PULSE 77; RESP 18; TEMP 97.3; O2SAT 98
[2023-02-04] MEDS: QUEtiapine FUMARATE 300 MG TABLET PO SCH (20:05)
[2023-02-04] MEDS: OLANZapine 10 MG TABLET PO SCH (20:05)
[2023-02-04 20:19] VITALS: BP 130/80; PULSE 72; RESP 17; TEMP 97.5; O2SAT 97
[2023-02-05 08:14] VITALS: BP 122/85; PULSE 83; RESP 18; TEMP 97.9; O2SAT 98
[2023-02-05 20:15] VITALS: RESP 20; TEMP 98
[2023-02-05] MEDS: OLANZapine 10 MG TABLET PO SCH (20:32)
[2023-02-05] MEDS: QUEtiapine FUMARATE 300 MG TABLET PO SCH (20:32)
[2023-02-06 08:52] VITALS: BP 119/77; PULSE 90; RESP 18; TEMP 97.6; O2SAT 96
[2023-02-06] MEDS: QUEtiapine FUMARATE 300 MG TABLET PO SCH (20:21)
[2023-02-06] MEDS: OLANZapine 10 MG TABLET PO SCH (20:21)
[2023-02-06 20:31] VITALS: BP 119/73; PULSE 87; RESP 20; TEMP 98; O2SAT 97
[2023-02-07 08:30] VITALS: BP 122/75; PULSE 84; RESP 18; TEMP 97.8; O2SAT 95
[2023-02-07] MEDS: OLANZapine 10 MG TABLET PO SCH (20:24)
[2023-02-07] MEDS: QUEtiapine FUMARATE 300 MG TABLET PO SCH (20:24)
[2023-02-07 20:36] VITALS: BP 121/72; PULSE 83; RESP 18; TEMP 97.8; O2SAT 98
[2023-02-08 08:23] VITALS: BP 127/65; PULSE 77; RESP 18; TEMP 97.9; O2SAT 97
[2023-02-08 20:11] VITALS: BP 132/75; PULSE 76; RESP 20; TEMP 97.8; O2SAT 97
[2023-02-08] MEDS: QUEtiapine FUMARATE 300 MG TABLET PO SCH (20:15)
[2023-02-08] MEDS: OLANZapine 10 MG TABLET PO SCH (20:15)
[2023-02-09 08:33] VITALS: BP 127/68; PULSE 84; RESP 18; TEMP 97.8; O2SAT 97
[2023-02-09] MEDS: OLANZapine 10 MG TABLET PO SCH (20:04)
[2023-02-09] MEDS: QUEtiapine FUMARATE 300 MG TABLET PO SCH (20:04)
[2023-02-09 20:39] VITALS: BP 110/75; PULSE 77; RESP 18; TEMP 97.3; O2SAT 94
[2023-02-10 08:16] VITALS: BP 136/82; PULSE 85; RESP 18; TEMP 98; O2SAT 96
[2023-02-10] MEDS: QUEtiapine FUMARATE 300 MG TABLET PO SCH (20:31)
[2023-02-10] MEDS: OLANZapine 10 MG TABLET PO SCH (20:31)
[2023-02-10 22:18] VITALS: BP 125/81; PULSE 82; RESP 18; TEMP 97.8
[2023-02-11 08:17] VITALS: BP 108/77; PULSE 96; RESP 18; TEMP 97.8; O2SAT 97
[2023-02-11 20:12] VITALS: BP 144/82; PULSE 67; RESP 20; TEMP 97.7; O2SAT 98
[2023-02-11] MEDS: QUEtiapine FUMARATE 300 MG TABLET PO SCH (20:19)
[2023-02-11] MEDS: OLANZapine 10 MG TABLET PO SCH (20:19)
[2023-02-12 08:32] VITALS: BP 127/78; PULSE 63; RESP 18; TEMP 97.9; O2SAT 97
[2023-02-12] MEDS: OLANZapine 10 MG TABLET PO SCH (20:15)
[2023-02-12] MEDS: QUEtiapine FUMARATE 300 MG TABLET PO SCH (20:15)
[2023-02-12 20:16] VITALS: BP 106/73; PULSE 110; RESP 20; TEMP 97.7; O2SAT 97
[2023-02-13 08:21] VITALS: BP 125/86; PULSE 100; RESP 17; TEMP 98; O2SAT 100
[2023-02-13] MEDS: OLANZapine 10 MG TABLET PO SCH (20:00)
[2023-02-13] MEDS: QUEtiapine FUMARATE 300 MG TABLET PO SCH (20:00)
[2023-02-13 20:06] VITALS: BP 121/77; PULSE 77; RESP 20; TEMP 98.4; O2SAT 94
[2023-02-14 09:12] VITALS: BP 145/88; PULSE 86; RESP 18; TEMP 98.5; O2SAT 97
[2023-02-14] MEDS: OLANZapine 10 MG TABLET PO SCH (20:07)
[2023-02-14] MEDS: QUEtiapine FUMARATE 300 MG TABLET PO SCH (20:07)
[2023-02-14 23:24] VITALS: BP 136/73; PULSE 80; RESP 18; TEMP 98.1; O2SAT 98
[2023-02-15 08:38] VITALS: BP 127/80; PULSE 86; RESP 18; TEMP 98.2; O2SAT 94
[2023-02-15] MEDS: QUEtiapine FUMARATE 300 MG TABLET PO SCH (20:39)
[2023-02-15] MEDS: OLANZapine 10 MG TABLET PO SCH (20:40)
[2023-02-15 23:51] VITALS: RESP 18
[2023-02-16 08:36] VITALS: BP 120/63; PULSE 100; RESP 18; TEMP 98; O2SAT 95
[2023-02-16] MEDS: QUEtiapine FUMARATE 300 MG TABLET PO SCH (20:05)
[2023-02-16] MEDS: OLANZapine 10 MG TABLET PO SCH (20:05)
[2023-02-16 22:19] VITALS: BP 127/77; PULSE 85; RESP 18; TEMP 98.2; O2SAT 96
[2023-02-17 08:56] VITALS: BP 135/88; PULSE 92; RESP 18; TEMP 97.7; O2SAT 96
[2023-02-17] MEDS: OLANZapine 10 MG TABLET PO SCH (20:02)
[2023-02-17] MEDS: QUEtiapine FUMARATE 300 MG TABLET PO SCH (20:02)
[2023-02-17 21:15] VITALS: BP 126/79; PULSE 79; RESP 16; TEMP 97.8; O2SAT 95
[2023-02-18 08:25] VITALS: BP 131/80; PULSE 67; RESP 18; TEMP 97.6; O2SAT 95
[2023-02-18 20:15] VITALS: BP 132/84; PULSE 82; RESP 18; TEMP 97.7; O2SAT 95
[2023-02-18] MEDS: QUEtiapine FUMARATE 300 MG TABLET PO SCH (20:35)
[2023-02-18] MEDS: OLANZapine 10 MG TABLET PO SCH (20:35)
[2023-02-19 16:12] VITALS: BP 152/100; PULSE 90; RESP 18; TEMP 97.8; O2SAT 95
[2023-02-19] MEDS: QUEtiapine FUMARATE 300 MG TABLET PO SCH (20:09)
[2023-02-19] MEDS: OLANZapine 10 MG TABLET PO SCH (20:09)
[2023-02-19 20:53] VITALS: BP 140/84; PULSE 88; RESP 18; TEMP 97.9; O2SAT 99
[2023-02-20 08:04] VITALS: BP 124/69; PULSE 76; RESP 17; TEMP 97.3
[2023-02-20] MEDS: QUEtiapine FUMARATE 300 MG TABLET PO SCH (20:14)
[2023-02-20] MEDS: OLANZapine 10 MG TABLET PO SCH (20:14)
[2023-02-20 20:27] VITALS: BP 136/77; PULSE 74; RESP 18; TEMP 97.9
[2023-02-21 10:17] VITALS: BP 136/87; PULSE 79; RESP 18; TEMP 97.7; O2SAT 97
[2023-02-21] MEDS: QUEtiapine FUMARATE 300 MG TABLET PO SCH (20:55)
[2023-02-21] MEDS: OLANZapine 10 MG TABLET PO SCH (20:55)
[2023-02-22 05:15] VITALS: BP 122/82; PULSE 81; RESP 18; TEMP 97.8
[2023-02-22 08:00] VITALS: BP 124/71; PULSE 78; RESP 17; TEMP 98.6; O2SAT 97
[2023-02-22] MEDS: OLANZapine 10 MG TABLET PO SCH (20:03)
[2023-02-22] MEDS: QUEtiapine FUMARATE 300 MG TABLET PO SCH (20:03)
[2023-02-22 20:18] VITALS: BP 120/74; PULSE 69; RESP 20; TEMP 97.6; O2SAT 98
[2023-02-23 08:04] VITALS: BP 158/88; PULSE 80; RESP 18; TEMP 98; O2SAT 95
[2023-02-23] MEDS: QUEtiapine FUMARATE 300 MG TABLET PO SCH (20:05)
[2023-02-23] MEDS: OLANZapine 10 MG TABLET PO SCH (20:05)
[2023-02-23 22:22] VITALS: BP 117/60; PULSE 71; RESP 18; TEMP 97.5; O2SAT 98
[2023-02-24 08:34] VITALS: BP 128/74; PULSE 84; RESP 18; TEMP 97.6; O2SAT 96
[2023-02-24] MEDS: OLANZapine 10 MG TABLET PO SCH (20:02)
[2023-02-24] MEDS: QUEtiapine FUMARATE 300 MG TABLET PO SCH (20:03)
[2023-02-25 02:29] VITALS: RESP 18
[2023-02-25 08:27] VITALS: BP 139/80; PULSE 99; RESP 18; TEMP 98; O2SAT 98
[2023-02-25] MEDS ORDERED: TUBERCULIN, PURIFIED PROTEIN DERIVATIVE 5 TU/0.1 ML SYRINGE ID ONE (18:00)
[2023-02-25] MEDS: QUEtiapine FUMARATE 300 MG TABLET PO SCH (20:38)
[2023-02-25] MEDS: OLANZapine 10 MG TABLET PO SCH (20:38)
[2023-02-25 21:40] VITALS: BP 138/88; PULSE 85; RESP 18; TEMP 97.7
[2023-02-26 13:20] VITALS: RESP 17; TEMP 97.6
[2023-02-26] MEDS: OLANZapine 10 MG TABLET PO SCH (20:41)
[2023-02-26] MEDS: QUEtiapine FUMARATE 300 MG TABLET PO SCH (20:41)
[2023-02-27 01:15] VITALS: BP 130/85; PULSE 85; RESP 17; TEMP 98; O2SAT 98
[2023-02-27 10:19] VITALS: BP 126/77; PULSE 84; RESP 18; TEMP 97.2; O2SAT 100
[2023-02-27] MEDS: OLANZapine 10 MG TABLET PO SCH (20:20)
[2023-02-27] MEDS: QUEtiapine FUMARATE 300 MG TABLET PO SCH (20:20)
[2023-02-28 01:43] VITALS: RESP 18
[2023-02-28 10:18] VITALS: BP 123/77; PULSE 77; RESP 20; TEMP 97.7; O2SAT 95
[2023-02-28] MEDS: OLANZapine 10 MG TABLET PO SCH (20:14)
[2023-02-28] MEDS: QUEtiapine FUMARATE 300 MG TABLET PO SCH (20:14)
[2023-02-28 21:42] VITALS: BP 130/74; PULSE 88; RESP 18; TEMP 98.2; O2SAT 99
[2023-03-01 09:55] VITALS: BP 140/85; PULSE 87; RESP 18; TEMP 97.8; O2SAT 97
[2023-03-01] MEDS: QUEtiapine FUMARATE 300 MG TABLET PO SCH (20:08)
[2023-03-01] MEDS: OLANZapine 10 MG TABLET PO SCH (20:08)
[2023-03-01 20:35] VITALS: BP 124/63; PULSE 77; RESP 18; TEMP 97.6
[2023-03-02 08:12] VITALS: BP 120/62; PULSE 90; RESP 20; TEMP 97.9; O2SAT 99
[2023-03-02 20:18] VITALS: BP 106/79; PULSE 76; RESP 18; TEMP 97.7; O2SAT 99
[2023-03-02] MEDS: QUEtiapine FUMARATE 300 MG TABLET PO SCH (20:41)
[2023-03-02] MEDS: OLANZapine 10 MG TABLET PO SCH (20:41)
[2023-03-03 08:33] VITALS: BP 125/78; PULSE 78; RESP 18; TEMP 97.7; O2SAT 98
[2023-03-03] MEDS ORDERED: LORazepam 2 MG/ML VIAL ONE (10:16)
[2023-03-03] MEDS ORDERED: DiphenhydrAMINE HCL 50 MG/ML VIAL ONE (10:17)
== END 2023-03-03 10:30 | disposition left against medical advice (07) | DRG 750 ==
LOC: EMS 13:53 → B3A 18:56
PROVIDERS: ADMIT Psychiatry & Neurology Child & Adolescent Psychiatry; ATTEND Psychiatry & Neurology Child & Adolescent Psychiatry
PROC: GZHZZZZ Group Psychotherapy (ICD-10-PCS; principal; 2022-11-20)
DX: F20.0 Paranoid schizophrenia (principal); D64.9 Anemia, unspecified; F41.9 Anxiety disorder, unspecified; Z20.822 Contact with and (suspected) exposure to COVID-19; E66.9 Obesity, unspecified; Z79.899 Other long term (current) drug therapy; Z88.0 Allergy status to penicillin; Z88.6 Allergy status to analgesic agent; Z68.33 Body mass index [BMI] 33.0-33.9, adult; Z59.00 Homelessness unspecified
CPT/HCPCS: 80053; 80061; 80307; 81003; 83036; 84443; 85025; 87081; 90686; 99285; G0480; J1200; J1630; J2060